=== PATIENT | female | born 1995 | race American Indian/Alaskan Native ===

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

== ENCOUNTER 2018-04-19 08:27 | Emergency (ER) | payer MEDICAID ==
[2018-04-19 08:28] VITALS: BMI 29.2
[2018-04-19 08:41] VITALS: BP 110/78; O2SAT 98
[2018-04-19] MEDS ORDERED: Sodium Chloride 0.9% 500 ML IV STA (08:50)
--- NOTE | 2018-04-19 09:05 | ED PDOC ---
Arrival/HPI - General Historian: Patient - History of Present Illness Narrative History of Present Illness (Text): 04/19/18 09:02 22 year old female with a past medical history of dermoid cyst who comes in today complaining of suprapubic pain for the past couple of days. Patient reports some radiation to the left quadrant. She rates it a 6/10 in severity. Patient also reports a fever with a Tmax of 100.6 F at home. Patient reports taking Ibuprofen with some improvement. She also admits to lightheadedness and some dizziness. Patient denies any chest pain, nausea, vomiting, headaches, syncopal episodes, or any other complaints. PMD: Dr. Philip Medical history: Dermoid cyst Medications: Denies Allergies: Denies Surgical history: Denies Time/Duration: < week Symptom Onset: Gradual Symptom Course: Unchanged Quality: Stabbing Severity Level: 6 Activities at Onset: Rest Context: Sitting <Ez Montiel - Last Filed: 04/19/18 12:23> Past Medical History - Provider Review Nursing Documentation Reviewed: Yes - Travel History Have you recently traveled outside [place] w/in the past 3 mons?: No - Past History Past History: No Previous - Infectious Disease Hx of Infectious Diseases: None - Tetanus Immunization Tetanus Immunization: Unknown - Psychiatric Hx Depression: No Hx Emotional Abuse: No Hx Physical Abuse: No Hx Substance Use: No - Past Surgical History Past Surgical History: No Previous - Anesthesia Hx Anesthesia: No Hx Anesthesia Reactions: No Hx Malignant Hyperthermia: No - Suicidal Assessment Feels Threatened In Home Enviroment: No <Ez Montiel - Last Filed: 04/19/18 12:23> Family/Social History - Physician Review Nursing Documentation Reviewed: Yes Family/Social History: No Known Family HX Smoking Status: Never Smoked Hx Alcohol Use: No Hx Substance Use: No <Ez Montiel - Last Filed: 04/19/18 12:23> Allergies/Home Meds <Ez Montiel - Last Filed: 04/19/18 12:23> <Shalom Moreno - Last Filed: 04/19/18 12:51> Allergies/Adverse Reactions: Allergies No Known Allergies Allergy (Verified 09/15/16 00:58) Review of Systems - Physician Review All systems were reviewed & negative as marked: Yes - Review of Systems Constitutional: Fevers (Tmax 100.6). absent: Fatigue, Weight Change Eyes: Normal. absent: Vision Changes, Photophobia ENT: Normal. absent: Hearing Changes, Tinnitus, Rhinorrhea Respiratory: Normal. absent: SOB, Cough, Sputum Cardiovascular: Normal. absent: Chest Pain, Palpitations, Syncope Gastrointestinal: Abdominal Pain (Suprapubic pain). absent: Constipation, Diarrhea, Nausea, Vomiting, Appetite Changes, Food Intolerance Musculoskeletal: Normal. absent: Arthralgias, Back Pain, Neck Pain Skin: Normal. absent: Rash, Pruritis, Skin Lesions Neurological: Normal. absent: Headache, Dizziness, Facial Droop Endocrine: Normal. absent: Diaphoresis, Polyuria, Polydipsia Hemo/Lymphatic: Normal. absent: Adenopathy, Easy Bleeding Psychiatric: Normal. absent: Anxiety, Depression <Ez Montiel - Last Filed: 04/19/18 12:23> Physical Exam Vital Signs Reviewed: Yes Vital Signs Temp Pulse Resp BP Pulse Ox 04/19/18 08:28 98.9 F 106 H 18 110/78 98 Temperature: Afebrile Blood Pressure: Normal Pulse: Tachycardic Respiratory Rate: Normal Appearance: Positive for: Well-Appearing, Non-Toxic, Comfortable. No: Ill-Appe aring Pain Distress: Mild Mental Status: Positive for: Alert and Oriented X 3. No: Confused, Agitated - Systems Exam Head: Present: Atraumatic, Normocephalic. No: Tenderness, Abrasion, Laceration Pupils: Present: PERRL. No: Sluggish, Non-Reactive Extroacular Muscles: Present: EOMI. No: Gaze Palsy Conjunctiva: Present: Normal. No: Injected Mouth: Present: Moist Mucous Membranes. No: Dry, Normal Teeth Neck: Present: Normal Range of Motion. No: Meningeal Signs, JVD Respiratory/Chest: Present: Clear to Auscultation, Good Air Exchange. No: Wheezes, Tachypneic Cardiovascular: Present: Regular Rate and Rhythm, Normal S1, S2, Tachycardic Abdomen: Present: Tenderness (Suprapubic area), Normal Bowel Sounds. No: McBurney's Point Tender, Ostomy Tubes Upper Extremity: Present: Normal Inspection. No: Cyanosis, Edema, Swelling, Erythema Lower Extremity: Present: Normal Inspection. No: Gilmar's Sign Skin: Present: Dry, Normal Color. No: Pale Lymphatic: No: Cervical Adenopathy, Axillary Adenopathy, Inguinal Adenopathy Psychiatric: Present: Alert, Oriented x 3, Normal Insight <Ez Montiel - Last Filed: 04/19/18 12:23> Vital Signs Temp Pulse Resp BP Pulse Ox 04/19/18 08:28 98.9 F 106 H 18 110/78 98 <Shalom Moreno - Last Filed: 04/19/18 12:51> Medical Decision Making ED Course and Treatment: 04/19/18 09:12 22 year old female with a past medical history of dermoid cyst presents complaining of fatigue and suprapubic pain. Ovarian torsion vs. Ruptured dermoid cyst vs. Sypmtomatic anemia Plan: CBC CMP U/A Urine cx GC/Chylamydia Transvaginal u/s IV Toradol IV Fluids Transvaginal u/s -negative for torsion -positive for 8cm dermoid cyst, stable 04/19/18 12:23 PO Azithromycin IM Ceftriaxone administered Patient reports improvement in symptoms. Stable for discharge. - Medication Orders Current Medication Orders: Sodium Chloride (Sodium Chloride 0.9%) 500 mls @ 999 mls/hr IV .Q31M STA Stop: 04/19/18 09:20 Ketorolac Tromethamine (Toradol) 15 mg IVP STAT STA Stop: 04/19/18 08:57 <Ez Montiel - Last Filed: 04/19/18 12:23> ED Course and Treatment: Patient Seen with Resident: In agreement with resident note which contains more details about the patient. Patient seen and evaluated with resident. Came up with plan and treatment together. 22 year old female presents complaining suprapubic pain for the past couple days that radiates to the left quadrant associated with a fever. Plan: -- EKG -- Lab -- Rocephin, IV Fluids, Toradol, Zithromax -- Urine Culture -- POC Test -- Urinalysis w/ micro -- Reassess and disposition - Lab Interpretations Lab Results: 04/19/18 09:45 04/19/18 09:45 Lab Results 04/19/18 09:45: Sodium 138, Potassium 5.0, Chloride 104, Carbon Dioxide 27, Anion Gap 12, BUN 10, Creatinine 0.9, Est GFR ( Amer) > 60, Est GFR (Non- Af Amer) > 60, Random Glucose 90, Calcium 9.2, Total Bilirubin 0.4, AST 31, ALT 42, Alkaline Phosphatase 78, Total Protein 8.0, Albumin 4.1, Globulin 3.9, Albumin/Globulin Ratio 1.0 L 04/19/18 09:45: WBC 5.4, RBC 4.67, Hgb 13.6, Hct 41.0, MCV 87.8, MCH 29.1, MCHC 33.2, RDW 13.1, Plt Count 196, MPV 9.6, Gran % 59.7, Lymph % (Auto) 28.7, Mcduffie % (Auto) 6.6 H, Eos % (Auto) 3.7, Baso % (Auto) 1.3, Gran # 3.25, Lymph # (Auto) 1.6, Mcduffie # (Auto) 0.4, Eos # (Auto) 0.2, Baso # (Auto) 0.07 04/19/18 09:20: Urine Color Yellow, Urine Appearance Clear, Urine pH 7.0, Ur Specific [place] 1.025, Urine Protein 30 H, Urine Glucose (UA) Negative, Urine Ketones Negative, Urine Blood Negative, Urine Nitrate Negative, Urine Bilirubin Negative, Urine Urobilinogen 0.2, Ur Leukocyte Esterase Negative, Urine RBC 1 - 3, Urine WBC 2 - 5, Ur Epithelial Cells Many, Urine Bacteria Many, Urine Other Uyeast - RAD Interpretation Radiology Orders: 04/19/18 10:23 TRANSVAGINAL [US] Stat - Medication Orders Current Medication Orders: Discontinued Medications Azithromycin (Zithromax) 1,000 mg PO STAT STA; Protocol Stop: 04/19/18 10:07 Last Admin: 04/19/18 10:26 Dose: 1,000 mg Ceftriaxone Sodium (Rocephin) 250 mg IM STAT STA; Protocol Stop: 04/19/18 10:06 Last Admin: 04/19/18 10:26 Dose: 250 mg IM Administration Charges Document 04/19/18 10:26 [email or web address] (Rec: 04/19/18 10:26 [email or web address] [id number]) Injection Site MAR Injection Site Right Gluteus Rai Charges for Administration # of IM Administrations 1 Sodium Chloride (Sodium Chloride 0.9%) 500 mls @ 999 mls/hr IV .Q31M STA Stop: 04/19/18 09:20 Last Admin: 04/19/18 09:44 Dose: 999 mls/hr eMAR Start Stop Document 04/19/18 09:44 [email or web address] (Rec: 04/19/18 09:44 [email or web address] [id number]) Intravenous Solution Start Date 04/19/18 Start Time 09:44 Ketorolac Tromethamine (Toradol) 15 mg IVP STAT STA Stop: 04/19/18 08:57 Last Admin: 04/19/18 09:43 Dose: 15 mg MAR Pain Assessment Document 04/19/18 09:43 [email or web address] (Rec: 04/19/18 09:43 CAST [id number]) Pain Reassessment Is this a pain reassessment? No Sleep Is patient sleeping during reassessment? No Presence of Pain Presence of Pain Yes Pain Scale Used Protocol: PSCALES Pain Scale Used Numeric Location Pain Location Body Site Generalized Description Description Constant Intensity of Pain at present 5 Pain Behavior Facial Grimacing Aggravating Factors Changing Position Alleviating Factors/Management Medication Techniques Alleviating Factors Medication IVP Administration Document 04/19/18 09:43 [email or web address] (Rec: 04/19/18 09:43 [facility] [id number]) Charges for Administration # of IVP Administrations 1 <Shalom Moreno - Last Filed: 04/19/18 12:51> - Scribe Statement The provider has reviewed the documentation as recorded by the Celso Perez Provider Scribe Attestation: All medical record entries made by the Scribe were at my direction and personally dictated by me. I have reviewed the chart and agree that the record accurately reflects my personal performance of the history, physical exam, medical decision making, and the department course for this patient. I have also personally directed, reviewed, and agree with the discharge instructions and disposition. <Shalom Moreno - Last Filed: 04/19/18 12:51> Disposition/Present on Arrival - Present on Arrival Any Indicators Present on Arrival: No History of DVT/PE: No History of Uncontrolled Diabetes: No Urinary Catheter: No History of Decub. Ulcer: No History Surgical Site Infection Following: None - Disposition Have Diagnosis and Disposition been Completed?: Yes Disposition Time: 12:15 Patient Plan: Discharge <zE Montiel - Last Filed: 04/19/18 12:23> <Shalom Moreno - Last Filed: 04/19/18 12:51> - Disposition Diagnosis: Ovarian cyst Disposition: HOME/ ROUTINE Condition: IMPROVED Additional Instructions: 1. F/u with PMD within 2 days upon discharge. 2. F/u with [facility] within 2 days upon discharge. 3. Return to hospital for any new or worsening symptoms. Referrals: Oneyda Wesley MD [Primary Care Provider] - Follow up with primary Prudence Brown MD [Non-Staff] - Follow up with primary
[2018-04-19 09:30] LABS: URINE BILIRUBIN NEGATIVE (NEGATIVE); URINE BLOOD NEGATIVE (NEGATIVE); URINE GLUCOSE (UA) NEGATIVE (NEGATIVE); URINE LEUKOCYTE ESTERASE NEGATIVE Leu/uL (NEGATIVE); URINE PROTEIN 30 mg/dL (<30 mg/dL); URINE UROBILINOGEN 0.2 E.U./dL (<1 E.U./dL)
[2018-04-19 09:31] LABS: URINE APPEARANCE CLEAR (CLEAR); URINE COLOR YELLOW (YELLOW)
[2018-04-19 09:39] LABS: URINE BACTERIA MANY (NEG); URINE EPITHELIAL CELLS MANY /hpf (0-5)
[2018-04-19 09:51] LABS: BASO # 0.07 K/mm3 (0.0-2.0); BASO % 1.3 % (0.0-3.0); EOS # 0.2 (0.0-0.7); EOS % 3.7 % (1.5-5.0); GRAN # 3.25 (1.4-6.5); GRAN % 59.7 % (50.0-68.0); HEMOGLOBIN 13.6 g/dL (12.0-16.0); LYMPH # 1.6 (1.2-3.4); LYMPH % 28.7 % (22.0-35.0); MEAN CELL VOLUME 87.8 fl (80.0-105.0); MEAN CORPUSCULAR HEMOGLOBIN 29.1 pg (25.0-35.0); MEAN CORPUSCULAR HGB CONC 33.2 g/dl (31.0-37.0); MEAN PLATELET VOLUME 9.6 fl (7.0-11.0); MONO # 0.4 (0.1-0.6); MONO % 6.6 % (1.0-6.0); RBC 4.67 10^6/uL (3.5-6.1); RED CELL DISTRIBUTION WIDTH 13.1 % (11.5-14.5); WHITE BLOOD COUNT 5.4 10^3/uL (4.5-11.0)
[2018-04-19 10:02] LABS: ALBUMIN 4.1 g/dL (3.0-4.8); ALT/SGPT 42 U/L (7-56); AST/SGOT 31 U/L (14-36); BLOOD UREA NITROGEN 10 mg/dL (7-21); CALCIUM 9.2 mg/dL (8.4-10.5); GFR NON-AFRICAN AMERICAN > 60
[2018-04-19] MEDS ORDERED: cefTRIAXone (Rocephin) 250 mg Inj IM STA (10:05)
--- NOTE | 2018-04-19 12:11 | US ---
Date of service: 04/19/2018 HISTORY: hx of dermoid cyst COMPARISON: None available. TECHNIQUE: Transvaginal ultrasound was performed in longitudinal and transverse projections with limited transabdominal technique utilized as well. FINDINGS: UTERUS: Measures 6.4 x 3.1 x 4.5 cm. Normal in size and appearance, anteverted. No fibroid or other mass lesion seen. ENDOMETRIUM: Measures 9.2 mm in diameter. Unremarkable. CERVIX: Small nabothian cyst is identified superiorly, anteriorly. Remainder the cervix appears unremarkable. RIGHT OVARY: Measures 8.0 x 4.6 x 6.6 cm. The right ovary is enlarged by complex heterogeneous lesion containing a moderate amount of hyperechoic tissue as well as hypoechoic tissue. There is very low little intermediate echogenicity soft tissue present within it. The overall pattern would be concordant with patient's reported prior diagnosis of dermoid lesion. There is no prior comparison available at this time and clinical correlation is advised. Intra-ovarian arterial blood flow is appreciated. No torsion pattern demonstrated grossly. LEFT OVARY: Measures 4.2 x 2.5 x 3.9 cm. No solid mass. Normal flow. Small cyst suggestive of follicles are scattered in the left ovary. FREE FLUID: No significant free fluid noted. OTHER FINDINGS: None. IMPRESSION: 1. A complex mass measuring 8.0 cm greatest dimension is identified at the right adnexal compartment with the right ovary not identified independent of this structure. Overall appearance suggests dermoid lesion, particularly the hyperechoic components in the lesion. A prior imaging can be retrieved for comparison, then an addendum to this report can be provided. 2. The remainder of the examination appears unremarkable.
[2018-04-19 12:22] VITALS: PULSE 78; RESP 19; TEMP 98.2
--- NOTE | 2018-04-19 19:32 | CARD ---
APPROVED REPORT Date of service: 04/19/2018 EKG Measurement Heart [id number] <Conclusion> Normal sinus rhythm with sinus arrhythmia Normal ECG
== END 2018-04-19 12:22 | disposition home or self-care (01) ==
LOC: ED 08:27
DX: N83.201 Unspecified ovarian cyst, right side (principal)
CPT/HCPCS: 76830; 80053; 81001; 85025; 87086; 87491; 87591; 93005; 96372; 96374; 96375; 99283; J0696; J1885; J2405; J7040

== ENCOUNTER 2018-04-28 12:42 | Emergency (ER) | payer MEDICAID ==
[2018-04-28 12:43] VITALS: BMI 29.2
[2018-04-28] MEDS ORDERED: Sodium Chloride 0.9% 1,000 ML IV STA (14:02)
--- NOTE | 2018-04-28 14:03 | ED PDOC ---
Arrival/HPI - General Chief Complaint: Cough, Cold, Congestion Time Seen by Provider: 04/28/18 12:43 Historian: Patient - History of Present Illness Narrative History of Present Illness (Text): 04/28/18 14:03 A 22 year old female with no significant past medical history presents to the emergency department complaining of a fever since 2 weeks ago. Patient notes she has been symptomatic since April 14. Patient reports her body temperature at home measured to be 100.4 degrees and has constantly been of similar temperature for the last 2 weeks. Patient reports experiencing associated chills, lower back pain, dark urine, diaphoresis, and nausea. Patient denies any recent travel, sick people contact, chest pain, cough, vomiting, shortness of breath, neck pain, headache, dizziness, or any other complaints. Time/Duration: > week (2 weeks) Symptom Onset: Gradual Symptom Course: Unchanged Activities at Onset: Light Context: Home Past Medical History - Provider Review Nursing Documentation Reviewed: Yes - Past History Past History: No Previous - Infectious Disease Hx of Infectious Diseases: None - Tetanus Immunization Tetanus Immunization: Unknown - Psychiatric Hx Depression: No Hx Emotional Abuse: No Hx Physical Abuse: No Hx Substance Use: No - Past Surgical History Past Surgical History: No Previous - Anesthesia Hx Anesthesia: No Hx Anesthesia Reactions: No Hx Malignant Hyperthermia: No - Suicidal Assessment Feels Threatened In Home Enviroment: No Family/Social History - Physician Review Nursing Documentation Reviewed: Yes Family/Social History: No Known Family HX Smoking Status: Never Smoked Hx Alcohol Use: No Hx Substance Use: No Allergies/Home Meds Allergies/Adverse Reactions: Allergies No Known Allergies Allergy (Verified 09/15/16 00:58) Review of Systems - Physician Review All systems were reviewed & negative as marked: Yes - Review of Systems Respiratory: absent: Cough Cardiovascular: absent: Chest Pain Physical Exam - Physical Exam Narrative Physical Exam (Text): 04/28/18 14:04 Constitutional: No acute distress. Head: Normocephalic. Atraumatic. Eyes: PERRL. ENT: Moist mucous membranes. Neck: Supple. Cardiovascular: Regular rate. Chest: No tenderness. Respiratory: Clear to auscultation bilaterally. GI: Soft. Nontender. Nondistended. Back: Mild bilateral CVA tenderness. Musculoskeletal: No tenderness or swelling of extremities. Skin: No rash. Neurologic: Alert, no focal deficit. Vital Signs Reviewed: Yes Vital Signs Temp Pulse Resp BP Pulse Ox 04/28/18 13:36 99 F 103 H 18 123/66 100 Temperature: Febrile Blood Pressure: Normal Pulse: Regular Respiratory Rate: Normal Appearance: Positive for: Well-Appearing, Non-Toxic, Comfortable Medical Decision Making ED Course and Treatment: 04/28/18 14:04 Impression: 22 year old female presenting with fever. Plan: -- Labs -- CBC -- Chest X-ray -- Zofran Injection -- IV fluids -- Urine culture -- HCG, urine stat -- Urinalysis -- Reassess and disposition Prior Visits: Notes and results from previous visits were reviewed. Progress Notes: 04/28/18 15:03 Procedure: Chest X-ray Impression: No focal consolidation identified. Dictator: Aretha Multani MD Will treat for UTI. Advised follow up with PMD but to return to ED for worsening symptoms including fever, chills, pain, vomiting, dyspnea. - Scribe Statement The provider has reviewed the documentation as recorded by the Celso Salazar All medical record entries made by the Scribe were at my direction and personally dictated by me. I have reviewed the chart and agree that the record accurately reflects my personal performance of the history, physical exam, medical decision making, and the department course for this patient. I have also personally directed, reviewed, and agree with the discharge instructions and disposition. Disposition/Present on Arrival - Present on Arrival Any Indicators Present on Arrival: No History of DVT/PE: No History of Uncontrolled Diabetes: No Urinary Catheter: No History of Decub. Ulcer: No History Surgical Site Infection Following: None - Disposition Have Diagnosis and Disposition been Completed?: Yes Diagnosis: UTI (urinary tract infection) Disposition: HOME/ ROUTINE Disposition Time: 16:21 Patient Plan: Discharge Patient Problems: Current Active Problems Problem Status Onset UTI (urinary tract infection) Acute Condition: STABLE Discharge Instructions (ExitCare): Urinary Tract Infections in Adults Prescriptions: Ciprofloxacin [Cipro] 500 mg PO BID #14 tab Forms: [employer] (Bulgarian)
[2018-04-28 14:23] LABS: PH,URINE 6.5 (4.7-8.0); URINE BILIRUBIN SMALL (NEGATIVE); URINE BLOOD LARGE (NEGATIVE); URINE GLUCOSE (UA) NEGATIVE (NEGATIVE); URINE LEUKOCYTE ESTERASE NEGATIVE Leu/uL (NEGATIVE); URINE PROTEIN >=300 mg/dL (<30 mg/dL); URINE UROBILINOGEN 0.2 E.U./dL (<1 E.U./dL)
[2018-04-28 14:30] LABS: HCG,QUALITATIVE URINE NEGATIVE (NEGATIVE)
[2018-04-28 14:31] LABS: URINE APPEARANCE SL CLOUDY (CLEAR); URINE COLOR YELLOW (YELLOW)
[2018-04-28 14:41] LABS: URINE AMORPHOUS SEDIMENT FEW; URINE BACTERIA MANY (NEG); URINE COARSE GRANULAR CAST TRACE /hpf (0-2); URINE FINE GRANULAR CAST 0 - 2 /hpf (0-2); URINE HYALINE CAST 0 - 2 /hpf; URINE RBC 25 - 30 /hpf (0-2)
--- NOTE | 2018-04-28 14:58 | RAD ---
HISTORY: fever COMPARISON: No prior. TECHNIQUE: Chest, one view. FINDINGS: Examination limited by habitus. LUNGS: No focal consolidation. Please note that chest x-ray has limited sensitivity for the detection of pulmonary masses. PLEURA: No significant pleural effusion identified. No definite pneumothorax . CARDIOVASCULAR: Heart size appears within normal limits. No significant atherosclerotic calcification present. OSSEOUS STRUCTURES: No acute osseous abnormality identified. VISUALIZED UPPER ABDOMEN: Unremarkable. OTHER FINDINGS: None. IMPRESSION: No focal consolidation identified.
[2018-04-28 15:26] LABS: BASO # 0.28 K/mm3 (0.0-2.0); BASO % 2.8 % (0.0-3.0); EOS % 0.3 % (1.5-5.0); GRAN # 3.72 (1.4-6.5); HEMOGLOBIN 13.4 g/dL (12.0-16.0); LYMPH # 5.3 (1.2-3.4); LYMPH % 52.3 % (22.0-35.0); MEAN CELL VOLUME 85.2 fl (80.0-105.0); MEAN CORPUSCULAR HEMOGLOBIN 28.8 pg (25.0-35.0); MEAN CORPUSCULAR HGB CONC 33.8 g/dl (31.0-37.0); MEAN PLATELET VOLUME 9.8 fl (7.0-11.0); MONO # 0.8 (0.1-0.6); MONO % 7.6 % (1.0-6.0); RBC 4.66 10^6/uL (3.5-6.1); RED CELL DISTRIBUTION WIDTH 13.3 % (11.5-14.5)
[2018-04-28 16:05] LABS: ALB/GLOB RATIO 0.9 (1.1-1.8); ALBUMIN 3.2 g/dL (3.0-4.8); ALT/SGPT 117 U/L (7-56); AST/SGOT 90 U/L (14-36); BLOOD UREA NITROGEN 12 mg/dL (7-21); CALCIUM 8.2 mg/dL (8.4-10.5); GFR NON-AFRICAN AMERICAN > 60; LIPASE 50 U/L (23-300)
[2018-04-28 16:33] VITALS: BP 140/79; PULSE 90; RESP 16; TEMP 99.1; O2SAT 100
== END 2018-04-28 16:32 | disposition home or self-care (01) ==
LOC: ED 12:42
DX: N39.0 Urinary tract infection, site not specified (principal)
CPT/HCPCS: 71045; 80053; 81001; 83690; 84703; 85025; 87086; 96361; 96374; 99282; J2405; J7030